=== PATIENT | male | born 1995 | race Caucasian/White ===

== ENCOUNTER 2021-05-15 18:57 | Emergency (ER) | payer OTHER, SELFPAY ==
[~2021-05-15] VITALS: Ht 177.8 cm; Wt 100.0 kg
[2021-05-15] MEDS ORDERED: KETOROLAC 30 MG/ML 1ML VIAL IM ONE (23:35)
[2021-05-15] MEDS ORDERED: diphenhydrAMINE 25MG CAP PO ONE (23:40)
[2021-05-16 01:48] LABS: RSV AMPLIFICATION NEGATIVE (NEGATIVE)
[2021-05-16 01:56] VITALS: BP 139/74
== END 2021-05-16 02:02 | disposition home or self-care (01) ==
LOC: M ED 18:57
DX: R05.9 Cough, unspecified (principal); R51.9 Headache, unspecified; F41.9 Anxiety disorder, unspecified
CPT/HCPCS: 87631; 96372; 99283; J1885